=== PATIENT | female | born 1955 | race Caucasian/White ===

== ENCOUNTER → 2023-05-18 | Outpatient (CLI) | payer OTHER, SELFPAY ==
--- NOTE | 2023-05-18 09:24 | VDLE_ITS ---
Reason For Study: Right leg pain RIGHT LEFT CFV is compressible, spontaneous, phasic, CFV is compressible, spontaneous, phasic, competent and demonstrates normal competent, and demonstrates normal augmentation. augmentation. FV is compressible, spontaneous, phasic, competent and demonstrates normal augmentation. POP V is compressible, spontaneous, phasic, competent and demonstrates normal augmentation. T/P Trunk is compressible. PTV is compressible. RT PerV is compressible. Acute superficial vein thrombosis is noted in the GSV from miid thigh to prox calf. Thrombus is approximately 23 cm from CFV. Thrombus filled varicose veins noted from the distal thigh to prox calf. Procedure This is a venous duplex using B-mode, color flow and spectral Doppler. Exam performed in department. A preliminary report was called and/or faxed to Carmenza MONTESINOS. VL/Venous Duplex US, Unilateral Interpretation Summary Acute superficial vein thrombosis noted in the mid thigh great saphenous vein a nd adjacent varicosities Deep veins of the right lower extremity are patent and compressible segmentally . There is no evidence of right lower extremity deep vein thrombosis. Ordering Physician: Carmenza Rinaldi Referring Physician: Shayna Thomson Performed By: Robyn Ordonez RVT
== END | disposition home or self-care (01) ==
LOC: CVS 09:23
PROVIDERS: PCP Family Medicine; Referring Provider Physician Assistant; Visit Provider Physician Assistant
DX: I83.90 Asymptomatic varicose veins of unspecified lower extremity (principal); M79.604 Pain in right leg; I82.811 Embolism and thrombosis of superficial veins of right lower extremity
CPT/HCPCS: 93971